=== PATIENT | female | born 1955 | race Caucasian/White ===

== ENCOUNTER → 2022-06-28 | Outpatient (CLI) | payer MEDICARE ==
[2022-06-28 14:28] VITALS: BP 146/82; PULSE 72; TEMP 97.8; BMI 22.8
--- NOTE | 2022-07-08 16:37 | P.HPBAR ---
Bariatric H&P - History & Physicial H&P Date: 06/28/22 History & Physicial: Visit/CC: lap band Patient initial contact: Initial weight: Initial weight in pounds: Height: 5 ft 1.5 in Initial BMI: Last weight: Current weight: 55.792 kg Current weight in pounds: 123.00 Current BMI: 22.8 Horace body weight (based on NIH guidelines): 48.761 kg Excess body weight loss: The patient is a 67 year-old F who presents for Bariatric Assessment. patient presents today for bariatric follow-up. She is requesting some fluid removed from her Lap-Band. She has had some mild GERD and dysphagia. Past Medical History Past Medical History: Osteoarthritis (OA), Thyroid Disorder Additional Past Medical History / Comment(s): osteoporosis History of Any Multi-Drug Resistant Organisms: None Reported Past Surgical History: Back Surgery, Bariatric Surgery Additional Past Surgical History / Comment(s): lap band surgery, panniculectomy Past Anesthesia/Blood Transfusion Reactions: No Reported Reaction Past Psychological History: No Psychological Hx Reported Smoking Status: Never smoker Past Alcohol Use History: None Reported Past Drug Use History: None Reported Surgical - Exam Vital Signs Temp Pulse BP 97.8 F 72 146/82 06/28/22 14:23 06/28/22 14:23 06/28/22 14:23 - General well developed, well nourished - Eyes PERRL - ENT normal pinna, normal nares - Neck no masses - Respiratory normal expansion - Cardiovascular Rhythm: regular - Abdomen Abdomen: soft, non tender Bariatric Assessment & Plan Plan: Patient's Lap-Band was adjusted. She had 5 cc remove the band. She currently has 0 in the band. She will follow-up in 4 weeks. Bariatric Checklist Checklist: Plan: Checklist: EGD: 1. Hiatal hernia: 2. H. Pylori: HgbA1c: Vitamin D: Smoking: Primary care physician referral: Dr. Miller Psychiatry clearance: Cardiology clearance: Sleep study: Diet journal: VTE risk score: VTE risk level: Rehab needs at discharge:
== END ==
LOC: BARWHC3 14:07
PROVIDERS: ATTEND Surgery
DX: E66.01 Morbid (severe) obesity due to excess calories (principal); Z46.51 Encounter for fitting and adjustment of gastric lap band; Z68.22 Body mass index [BMI] 22.0-22.9, adult; K21.9 Gastro-esophageal reflux disease without esophagitis; R13.10 Dysphagia, unspecified; M19.90 Unspecified osteoarthritis, unspecified site; M81.0 Age-related osteoporosis without current pathological fracture
CPT/HCPCS: 99212

== ENCOUNTER 2024-08-08 10:32 | Day surgery (SDC) | payer BC, MEDICARE ==
[2024-08-06 11:12] VITALS: BMI 22.4
[2024-08-08] MEDS: IV FLUID CONTINUATION 1,000 ML IV ONE (10:52)
[2024-08-08] MEDS: HEPARIN SODIUM,PORCINE 5,000 UNIT/ML 1 ML VIAL SQ PRN (11:02)
[2024-08-08] MEDS: ACETAMINOPHEN TAB 500 MG TAB PO PRN (11:03)
[2024-08-08] MEDS: ONDANSETRON 4 MG/2 ML VIAL IVP ONE (11:03)
[2024-08-08] MEDS: LACTATED RINGERS 1,000 ML IV SCH (11:03)
[2024-08-08] MEDS: DEXAMETHASONE SOD PHOSPHATE 4 MG/ML 1 ML VIAL IV ONE (11:03)
[2024-08-08 11:13] VITALS: RESP 16
[2024-08-08] MEDS ORDERED: SUCCINYLCHOLINE CHLORIDE 200 MG/10 ML VIAL IV ONE (11:33)
[2024-08-08] MEDS ORDERED: PROPOFOL 10 MG/ML 20 ML VIAL IV ONE (11:33)
[2024-08-08] MEDS ORDERED: KETOROLAC 15 MG/ML 1 ML VIAL ONE (11:33)
[2024-08-08] MEDS ORDERED: MIDAZOLAM 2 MG/2 ML VIAL ONE (11:33)
[2024-08-08] MEDS ORDERED: LIDOCAINE 4% LTA KIT (4 ML) TOPICAL ONE (11:33)
[2024-08-08] MEDS ORDERED: NEOSTIGMINE 1 MG/ML 10 ML VIAL ONE (11:33)
[2024-08-08] MEDS ORDERED: HYDROmorphone (PF) 1 MG/ML ONE (11:33)
[2024-08-08] MEDS ORDERED: fentaNYL (PF) 50 MCG/ML 2 ML AMP ONE (11:33)
[2024-08-08] MEDS ORDERED: ROCURONIUM 10 MG/ML (5 ML VIAL) IV ONE (11:33)
[2024-08-08] MEDS ORDERED: LIDOCAINE 1% INJ 10MG/ML (20 ML MDV) ONE (11:33)
[2024-08-08] MEDS ORDERED: PHENYLEPHRINE-0.9% NACL SYG 1,000 MCG/10 ML SYRINGE ONE (11:33)
[2024-08-08] MEDS ORDERED: GLYCOPYRROLATE 0.2 MG/ML 2 ML VIAL ONE (11:33)
[2024-08-08] MEDS: ceFAZolin 2 GM in DEXTROSE 5% IN WATER 50 ML IVPB PRN (11:38)
[2024-08-08] MEDS: LIDOCAINE 1%-EPI 1:100,000 20 ML VIAL SQ ONE (12:09)
[2024-08-08 12:48] VITALS: TEMP 98
[2024-08-08] MEDS: HYDROmorphone 0.5 MG/0.5 ML SYRINGE IVP PRN (13:11)
--- NOTE | 2024-08-08 13:18 | P.OP ---
Date of Procedure: 08/08/24 Preoperative Diagnosis: Dysphagia Postoperative Diagnosis: Dysphagia Procedure(s) Performed: Laparoscopic removal of Lap-Band system Anesthesia: KHANG Surgeon: Yohan Mccormack Estimated Blood Loss (ml): 5 Pathology: none sent Condition: stable Disposition: PACU Description of Procedure: The patient was placed on the endoscopy table in the lateral position. H he received general anesthesia. Her abdomen was prepped and draped you sterile fashion. She had been placed in dorsal thigh position. The skin was incised anesthetized 1% local Xylocaine. Using an 11 blade the skin incised at the port site. Then using electrocautery the Lap-Band port was dissected free. The 22 was then cut. And the Lap-Band port was removed. Next using a 5 mm optical trocar under direct vision the peritoneal cavity entered. Upon entering purulent cavity of the abdomen insufflated. After adequate deflation 5 mm trocars placed in the right and left lateral position. And then the original trocar was exchanged for a 15 mm trocar site. The adhesions to the Lap-Band device were lysed electrocautery. The adhesions to the Lap-Band device were freed. And then the buckle was undone. The Lap-Band was then cut next to the buckle and withdrawn from the stomach. The care was identified preserve the gastric wall. There was no injury of the stomach or esophagus seen. Once the Lap-Band was withdrawn from the stomach. It was extracted through the 15 mm trocar site. The abdomen is irrigated as no bleeding seen. The trocars withdrawn. The skin was closed interrupted 3-0 Monocryl suture. Dermabond dress was applied.
[2024-08-08 15:16] VITALS: BP 132/70; PULSE 82
== END 2024-08-08 15:25 | disposition home or self-care (01) ==
LOC: OR 10:32
PROVIDERS: ATTEND Surgery
DX: K21.00 Gastro-esophageal reflux disease with esophagitis, without bleeding (principal); F17.200 Nicotine dependence, unspecified, uncomplicated; F12.90 Cannabis use, unspecified, uncomplicated; E07.9 Disorder of thyroid, unspecified; F32.A Depression, unspecified; M19.90 Unspecified osteoarthritis, unspecified site; M81.0 Age-related osteoporosis without current pathological fracture; Z79.890 Hormone replacement therapy; Z79.899 Other long term (current) drug therapy
CPT/HCPCS: 43774; J2250; J0330; J1644; J1100; J2710; J0690; J2405; J2003; J3010; J1171 ×2; J1885; J2704; J2371; J1596